=== PATIENT | female | born 1930 | race Caucasian/White ===

== ENCOUNTER 2021-09-10 19:11 | Inpatient (IN) | payer OTHER, BC ==
[2021-09-10] MEDS ORDERED: LORazepam 2 MG/ML SDV VIAL IVPUSH ONE ×3 (19:16→20:15)
[2021-09-10] MEDS ORDERED: LORazepam 2 MG/ML SDV VIAL IM ONE (19:16)
[2021-09-10 20:39] LABS: VENOUS BASE EXCESS -4.2 mmol/L (-2-2); VENOUS O2 SATURATION 76.6 % (70-80); VENOUS PCO2 35.2 mmHg (38-52); VENOUS PH 7.377 (7.310-7.410)
[2021-09-10 21:03] LABS: BASO % 1.3 % (0-2.0); EOS % 0.9 % (0-4.5); HEMATOCRIT 40.6 % (32.4-45.2); HEMOGLOBIN 13.4 GM/dL (10.7-15.3); LYMPH % 24.8 % (8-40); MEAN CELL VOLUME 112.2 fl (80-96); MONO % 4.4 % (3.8-10.2); NEUT % 68.6 % (42.8-82.8); PLATELET COUNT 234 10^3/uL (134-434); RBC 3.61 M/mm3 (3.60-5.2); RDW 13.8 % (11.6-15.6); WHITE BLOOD COUNT 7.6 K/mm3 (4.0-10.0)
[2021-09-10 21:11] LABS: INR 0.97 (0.83-1.09); PROTHROMBIN TIME (PATIENT) 11.1 SEC (9.7-13.0)
[2021-09-10 21:13] LABS: ACTIVATED PTT 28.3 SECONDS (25.2-36.5)
[2021-09-10 21:25] LABS: EPI CELLS 4 /uL (0-25.1); HYALINE CASTS 0 /uL (0-3.1); PH,URINE 6.5 (5.0-8.0); URINE APPEARANCE CLEAR; URINE BACTERIA 2 /uL (0-1359); URINE BILIRUBIN NEGATIVE (NEGATIVE); URINE COLOR YELLOW; URINE GLUCOSE (UA) NEGATIVE (NEGATIVE); URINE KETONE 1+ (NEGATIVE); URINE LEUK ESTERASE NEGATIVE (NEGATIVE); URINE NITRITE NEGATIVE (NEGATIVE); URINE PROTEIN 1+ (NEGATIVE); URINE RBC 7 /uL (0-23.9); URINE UROBILINOGEN 0.2 mg/dL (0.2-1.0); URINE WBC 2 /uL (0-25.8)
[2021-09-10 21:28] LABS: CHLORIDE 104 mmol/L (98-107); SODIUM 137 mmol/L (136-145)
[2021-09-10 21:30] LABS: ALBUMIN 4.8 g/dl (3.4-5.0); ANION GAP 12 MMOL/L (8-16); BLOOD UREA NITROGEN 28.4 mg/dL (7-18); CALCIUM 8.9 mg/dL (8.5-10.1); CO2 21 mmol/L (21-32); GLUCOSE,RANDOM 133 mg/dL (74-106)
[2021-09-10 21:34] LABS: CREATININE 1.1 mg/dL (0.55-1.3); SGOT/AST 29 U/L (15-37); SGPT/ALT 35 U/L (13-61)
[2021-09-10 21:35] LABS: BILIRUBIN,TOTAL 0.9 mg/dL (0.2-1); TOT PROT 7.6 g/dl (6.4-8.2)
[2021-09-10 21:36] LABS: ALK PHOS 75 U/L (45-117)
[2021-09-10 21:41] LABS: MACROCYTOSIS 3+; PLATELET ESTIMATE NORMAL
[2021-09-11] MEDS ORDERED: POLYETHYLENE GLYCOL (HEALTHYLAX) 3350 17 GM PACKET PO PRN (00:16)
[2021-09-11] MEDS ORDERED: ACETAMINOPHEN 325 MG TABLET (FP) PO PRN (00:16)
[2021-09-11] MEDS ORDERED: ACETAMINOPHEN 1000 MG/100 ML BAG IVPB ONE ×2 (01:16→18:03)
[2021-09-11] MEDS ORDERED: ASPIRIN 300 MG SUPP.RECT PR STA (02:32)
[2021-09-11] MEDS ORDERED: ASPIRIN 300 MG SUPP.RECT RC STA (02:32)
[2021-09-11] MEDS ORDERED: METOPROLOL TARTRATE 5 MG/5 ML VIAL IVPUSH ONE (02:51)
[2021-09-11] MEDS ORDERED: HEPARIN NA (PORCINE) 5,000 UNITS/ML 1ML VIAL IVPUSH ONE (02:51)
[2021-09-11] MEDS ORDERED: HEPARIN NA (PORCINE) 5,000 UNITS/ML 1ML VIAL IVPUSH PRN ×2 (02:51)
[2021-09-11] MEDS ORDERED: HEPARIN INFUSION - 25,000 UNITS/500 ML INFUS.BAG IVPB ONE (03:21)
[2021-09-11] MEDS: HEPARIN INFUSION - 25,000 UNITS/500 ML INFUS.BAG IVPB SCH (03:42)
[2021-09-11] MEDS: CLOPIDOGREL BISULFATE 75 MG TABLET (FP) PO SCH ×2 (03:49→09:41)
[2021-09-11] MEDS ORDERED: CLOPIDOGREL BISULFATE 75 MG TABLET (FP) ONE (09:12)
[2021-09-11] MEDS ORDERED: METOPROLOL TARTRATE 5 MG/5 ML VIAL ONE (09:13)
[2021-09-11] MEDS: HYDROXYUREA 500 MG CAPSULE PO SCH (09:41)
[2021-09-11] MEDS: METOPROLOL TARTRATE 5 MG/5 ML VIAL IVPUSH SCH ×3 (09:41→23:06)
[2021-09-11] MEDS ORDERED: ASPIRIN 81 MG CHEWABLE TABLETS PO SCH (10:00)
[2021-09-11] MEDS ORDERED: ENOXAPARIN NA (PORCINE) 40 MG/0.4 ML DISP.SYRIN SQ SCH (10:00)
[2021-09-11 10:11] LABS: OPIATES, URI NEGATIVE (NEGATIVE); URINE BARBITURATES NEGATIVE (NEGATIVE)
[2021-09-11 10:12] LABS: COCAINE, UR NEGATIVE (NEGATIVE); METHADONE, UR NEGATIVE (NEGATIVE); PHENCYCLIDINE,URINE NEGATIVE (NEGATIVE); URINE AMPHETAMINES NEGATIVE (NEGATIVE); URINE BENZODIAZEPINES NEGATIVE (NEGATIVE)
[2021-09-11 10:32] LABS: BLOOD UREA NITROGEN 18.9 mg/dL (7-18)
[2021-09-11 10:34] LABS: ALBUMIN 4.5 g/dl (3.4-5.0)
[2021-09-11 10:37] LABS: BILIRUBIN,TOTAL 1.5 mg/dL (0.2-1); TOT PROT 7.4 g/dl (6.4-8.2)
[2021-09-11 12:03] LABS: BASO % 0.6 % (0-2.0); HEMATOCRIT 39.9 % (32.4-45.2); HEMOGLOBIN 13.7 GM/dL (10.7-15.3); MCH 38.1 pg (25.7-33.7); MCHC 34.4 g/dl (32.0-36.0); MEAN CELL VOLUME 110.7 fl (80-96); MEAN PLT VOLUME 8.2 fl (7.5-11.1); MONO % 6.3 % (3.8-10.2); NEUT % 76.1 % (42.8-82.8); PLATELET COUNT 207 10^3/uL (134-434); RDW 13.8 % (11.6-15.6); WHITE BLOOD COUNT 6.7 K/mm3 (4.0-10.0)
[2021-09-11] MEDS ORDERED: HALOPERIDOL LACTATE 5 MG/ML IM ONE (18:00)
[2021-09-11] MEDS ORDERED: ACETAMINOPHEN INJECTION 100 ML IVPB ONE (18:05)
[2021-09-11] MEDS ORDERED: ACETAMINOPHEN 1000 MG/100 ML BAG IVPB PRN (18:20)
[2021-09-11] MEDS ORDERED: HALOPERIDOL LACTATE 5 MG/ML ONE (18:28)
[2021-09-11] MEDS ORDERED: LACTATED RINGERS SOLUTION 1000 ML INFUS.BAG IV ONE (21:30)
[2021-09-11] MEDS ORDERED: LORazepam 2 MG/ML SDV VIAL IVPUSH ONE (21:30)
[2021-09-11] MEDS ORDERED: ROSUVASTATIN CA 5 MG TABLET PO SCH (22:00)
[2021-09-11] MEDS ORDERED: DEXTROSE 5%-NORMAL SALINE 1,000 ML IV SCH (22:15)
[2021-09-11] MEDS: ATORVASTATIN CA 80 MG TABLET (FP) PO SCH (22:33)
[2021-09-12] MEDS: METOPROLOL TARTRATE 5 MG/5 ML VIAL IVPUSH SCH ×5 (05:00→20:32)
[2021-09-12 07:21] LABS: BASO % 0.5 % (0-2.0); EOS % 0.9 % (0-4.5); HEMATOCRIT 35.3 % (32.4-45.2); HEMOGLOBIN 12.4 GM/dL (10.7-15.3); LYMPH % 16.5 % (8-40); MCH 38.7 pg (25.7-33.7); MCHC 35.1 g/dl (32.0-36.0); MEAN CELL VOLUME 110.4 fl (80-96); MEAN PLT VOLUME 8.3 fl (7.5-11.1); MONO % 6.2 % (3.8-10.2); NEUT % 75.9 % (42.8-82.8); PLATELET COUNT 193 10^3/uL (134-434); RDW 13.8 % (11.6-15.6)
[2021-09-12 08:43] LABS: CALCIUM 7.9 mg/dL (8.5-10.1); MAGNESIUM 1.7 mg/dL (1.8-2.4)
[2021-09-12 08:46] LABS: CREATININE 1.2 mg/dL (0.55-1.3)
[2021-09-12] MEDS ORDERED: MAGNESIUM SULF 50% (8.12 MEQ/2 ML-1 GM VIAL) IVPB ONE (08:52)
[2021-09-12] MEDS: HYDROXYUREA 500 MG CAPSULE PO SCH (09:56)
[2021-09-12] MEDS: ASPIRIN 81 MG CHEWABLE TABLETS PO SCH (09:56)
[2021-09-12] MEDS: CLOPIDOGREL BISULFATE 75 MG TABLET (FP) PO SCH (09:56)
[2021-09-12 13:29] LABS: N-TERMINAL BNP 7625.3 pg/ml (5-450)
[2021-09-12] MEDS: KCL 10 MEQ IVPB 10 MEQ/100 ML INFUS.BAG IVPB SCH ×2 (14:01→16:41)
[2021-09-12] MEDS ORDERED: POTASSIUM CHLORIDE TABS 20 MEQ TABLET.ER (FP) PO ONE (15:30)
[2021-09-12] MEDS: DEXTROSE 5%-NORMAL SALINE 1,000 ML IV SCH (16:42)
[2021-09-12] MEDS: HEPARIN INFUSION - 25,000 UNITS/500 ML INFUS.BAG IVPB SCH (20:26)
[2021-09-12] MEDS: ATORVASTATIN CA 80 MG TABLET (FP) PO SCH (21:26)
[2021-09-13] MEDS: METOPROLOL TARTRATE 5 MG/5 ML VIAL IVPUSH SCH ×3 (00:43→08:03)
[2021-09-13] MEDS: HEPARIN INFUSION - 25,000 UNITS/500 ML INFUS.BAG IVPB SCH (05:48)
[2021-09-13] MEDS: DEXTROSE 5%-NORMAL SALINE 1,000 ML IV SCH (06:11)
[2021-09-13 09:37] LABS: BASO % 0.7 % (0-2.0); EOS % 3.5 % (0-4.5); HEMATOCRIT 34.4 % (32.4-45.2); HEMOGLOBIN 11.4 GM/dL (10.7-15.3); LYMPH % 17.2 % (8-40); MCH 37.2 pg (25.7-33.7); MCHC 33.1 g/dl (32.0-36.0); MEAN CELL VOLUME 112.6 fl (80-96); MEAN PLT VOLUME 8.7 fl (7.5-11.1); MONO % 6.6 % (3.8-10.2); PLATELET COUNT 205 10^3/uL (134-434); RBC 3.05 M/mm3 (3.60-5.2); RDW 13.9 % (11.6-15.6); WHITE BLOOD COUNT 6.4 K/mm3 (4.0-10.0)
[2021-09-13 09:57] LABS: BLOOD UREA NITROGEN 20.1 mg/dL (7-18); CALCIUM 8.2 mg/dL (8.5-10.1)
[2021-09-13 09:58] LABS: MAGNESIUM 2.5 mg/dL (1.8-2.4)
[2021-09-13 10:01] LABS: CREATININE 1.1 mg/dL (0.55-1.3)
[2021-09-13 10:02] LABS: BILIRUBIN,TOTAL 0.9 mg/dL (0.2-1)
[2021-09-13 10:06] LABS: ALBUMIN 3.2 g/dl (3.4-5.0); TOT PROT 5.3 g/dl (6.4-8.2)
[2021-09-13] MEDS ORDERED: REGADENOSON 0.4 MG/5 ML PRE-FILLED SYRINGE IVPUSH ONE ×2 (11:25→11:45)
[2021-09-13 12:55] VITALS: BMI 26.4
[2021-09-13] MEDS: HYDROXYUREA 500 MG CAPSULE PO SCH (16:47)
[2021-09-13] MEDS: ASPIRIN 81 MG CHEWABLE TABLETS PO SCH (16:47)
[2021-09-13] MEDS: CLOPIDOGREL BISULFATE 75 MG TABLET (FP) PO SCH (16:47)
[2021-09-13] MEDS: ATORVASTATIN CA 80 MG TABLET (FP) PO SCH (21:52)
[2021-09-14 08:12] LABS: CALCIUM 8.6 mg/dL (8.5-10.1)
[2021-09-14 08:14] LABS: BLOOD UREA NITROGEN 21.5 mg/dL (7-18)
[2021-09-14 08:17] LABS: CREATININE 1.1 mg/dL (0.55-1.3)
[2021-09-14] MEDS: ASPIRIN 81 MG CHEWABLE TABLETS PO SCH (10:55)
[2021-09-14] MEDS: HYDROXYUREA 500 MG CAPSULE PO SCH (10:55)
[2021-09-14] MEDS: ATORVASTATIN CA 80 MG TABLET (FP) PO SCH (21:20)
[2021-09-15] MEDS: ASPIRIN 81 MG CHEWABLE TABLETS PO SCH (09:29)
[2021-09-15] MEDS: HYDROXYUREA 500 MG CAPSULE PO SCH (09:29)
[2021-09-15 14:13] LABS: HEMATOCRIT 35.4 % (32.4-45.2); HEMOGLOBIN 11.8 GM/dL (10.7-15.3); MCH 37.8 pg (25.7-33.7); MCHC 33.3 g/dl (32.0-36.0); MEAN CELL VOLUME 113.4 fl (80-96); MEAN PLT VOLUME 8.6 fl (7.5-11.1); PLATELET COUNT 214 10^3/uL (134-434); RBC 3.12 M/mm3 (3.60-5.2); RDW 14.3 % (11.6-15.6); WHITE BLOOD COUNT 6.4 K/mm3 (4.0-10.0)
[2021-09-15 14:36] LABS: ALBUMIN 3.6 g/dl (3.4-5.0); BLOOD UREA NITROGEN 24.8 mg/dL (7-18); CALCIUM 8.4 mg/dL (8.5-10.1); MAGNESIUM 2.2 mg/dL (1.8-2.4)
[2021-09-15 14:41] LABS: BILIRUBIN,TOTAL 0.5 mg/dL (0.2-1)
[2021-09-15 15:09] LABS: ANISOCYTOSIS 1+; MACROCYTOSIS 1+; PLATELET ESTIMATE NORMAL
[2021-09-15] MEDS: ATORVASTATIN CA 80 MG TABLET (FP) PO SCH (21:26)
[2021-09-16] MEDS ORDERED: ACETAMINOPHEN 325 MG TABLET (FP) PO PRN (07:15)
[2021-09-16] MEDS ORDERED: POLYETHYLENE GLYCOL (HEALTHYLAX) 3350 17 GM PACKET PO PRN (07:15)
[2021-09-16] MEDS: HYDROXYUREA 500 MG CAPSULE PO SCH (11:30)
[2021-09-16] MEDS: ASPIRIN 81 MG CHEWABLE TABLETS PO SCH (11:30)
[2021-09-16] MEDS: ATORVASTATIN CA 80 MG TABLET (FP) PO SCH (21:07)
[2021-09-16] MEDS: levETIRAcetam 250 MG TABLET PO SCH (21:07)
[2021-09-17] MEDS: ASPIRIN 81 MG CHEWABLE TABLETS PO SCH (09:37)
[2021-09-17] MEDS: HYDROXYUREA 500 MG CAPSULE PO SCH (09:37)
[2021-09-17] MEDS: levETIRAcetam 250 MG TABLET PO SCH (09:39)
[2021-09-17 10:25] VITALS: TEMP 97.7
[2021-09-17 12:53] LABS: HEMATOCRIT 34.9 % (32.4-45.2); HEMOGLOBIN 11.8 GM/dL (10.7-15.3); MCH 37.9 pg (25.7-33.7); MCHC 33.7 g/dl (32.0-36.0); MEAN CELL VOLUME 112.3 fl (80-96); PLATELET COUNT 197 10^3/uL (134-434); RBC 3.11 M/mm3 (3.60-5.2); RDW 14.3 % (11.6-15.6); WHITE BLOOD COUNT 5.4 K/mm3 (4.0-10.0)
[2021-09-17 14:23] VITALS: BP 116/63; PULSE 76
== END 2021-09-17 20:43 | disposition home health service (06) | DRG 884 ==
LOC: JER 19:11 → JERBED 21:41 → J4W 09-11 23:21
PROVIDERS: ADMIT Hospitalist; ATTEND Family Medicine
DX: F03.90 Unspecified dementia, unspecified severity, without behavioral disturbance, psychotic disturbance, mood disturbance, and anxiety (principal); I21.4 Non-ST elevation (NSTEMI) myocardial infarction; E87.1 Hypo-osmolality and hyponatremia; N17.9 Acute kidney failure, unspecified; G45.9 Transient cerebral ischemic attack, unspecified; R56.9 Unspecified convulsions; E78.5 Hyperlipidemia, unspecified; D47.3 Essential (hemorrhagic) thrombocythemia; R77.8 Other specified abnormalities of plasma proteins; E86.0 Dehydration; R10.9 Unspecified abdominal pain; E87.6 Hypokalemia; Z86.73 Personal history of transient ischemic attack (TIA), and cerebral infarction without residual deficits
CPT/HCPCS: 36415; 70450-TC; 70551-TC; 71045-TC-FY; 71250-TC; 74176-TC; 78452-TC; 80048; 80053; 80061; 80307; 81003; 82272; 82550; 82553; 82607; 82746; 82803; 82962; 83036; 83605; 83735; 83880; 84439; 84443; 84484; 85025; 85027; 85610; 85730; 86850; 86900; 86901; 87040; 87086; 93005; 93010; 93017; 93306-TC; 93880-TC; 95816; 97116-GP; 97161-GP; 99285-25; A9502; C9803; J1644; J2785; J8999; U0003; U0005